=== PATIENT | male | born 2000 | race Caucasian/White ===

== ENCOUNTER 2022-12-24 18:25 | Emergency (ER) | payer OTHER ==
[2022-12-24] MEDS ORDERED: Acetaminophen 325 MG TAB ONE (20:11)
[2022-12-24] MEDS ORDERED: Ketorolac Tromethamine 30 MG/ML VIAL ONE (20:11)
[2022-12-24] MEDS ORDERED: Cyclobenzaprine 10 MG TAB ONE (20:11)
== END 2022-12-24 21:19 | disposition home or self-care (01) ==
LOC: ERS 18:25 → EDSEX 18:25 → ERS 21:19
DX: M54.50 Low back pain, unspecified (principal)
CPT/HCPCS: 72100; 96372; J1885